=== PATIENT | male | born 1990 | race Caucasian/White ===

== ENCOUNTER → 2022-08-13 13:46 | Outpatient (CLI) | payer OTHER, SELFPAY ==
--- NOTE | ~2022-08-13 | XR_ITS ---
EXAM: XR sternum min 2V DATE: 08/13/2022 14:30 HISTORY: Other symptoms and signs involving the musculoskeletal syste . COMPARISON: None available. FINDINGS: Suboptimal sternal visualization in the frontal view. Normal mineralization. No fracture or dislocation. No lytic or blastic lesion. No erosion or periosteal change. Soft tissues within normal limits. IMPRESSION: Suboptimal sternal visualization of the frontal view, otherwise normal sternum radiograph findings. Reviewed, dictated and finalized at location [facility]. IMPRESSION: Suboptimal sternal visualization of the frontal view, otherwise nor mal sternum radiograph findings.
--- NOTE | ~2022-08-13 | XR_ITS ---
EXAMINATION: XR ribs LT 2V w CXR 2V Exam Date/Time: 08/13/2022 14:05 CDT HISTORY: Pleurodynia Comparison: None available. RESULT: Lines, tubes, and devices: None. Lungs and pleura: Clear. Cardiothymic silhouette: Normal. Other: No acute osseous or upper abdominal finding. IMPRESSION: No acute cardiopulmonary process. No acute osseous finding in the ribs. Reviewed, dictated and finalized at location [facility].
== END ==
PROVIDERS: PCP Physician Assistant; Visit Provider Physician Assistant
DX: R07.81 Pleurodynia (principal); R29.898 Other symptoms and signs involving the musculoskeletal system
CPT/HCPCS: 71046; 71100; 71120

== ENCOUNTER 2024-06-14 08:54 | Outpatient (CLI) | payer OTHER, SELFPAY ==
--- NOTE | ~2024-06-14 | XR_ITS ---
EXAMINATION: XR chest 2V 06/14/2024 09:12 INDICATION: Cough PROCEDURE: 2 view chest COMPARISON: 08/13/2022 FINDINGS: The lungs are clear. The cardiomediastinal silhouette is within normal limits. There are no pleural effusions. There is no pneumothorax suspected. IMPRESSION: 1: NO ACUTE CARDIOPULMONARY DISEASE. Reviewed, dictated and finalized at location A.
--- NOTE | ~2024-06-14 | XR_ITS ---
Lumbosacral Spine: AP and lateral views Clinical History: Pain Findings: The normal lordotic curve is maintained. The vertebral bodies and posterior elements are i ntact. The intervertebral disc spaces are preserved. The sacroiliac joints are normally outlined. Impression: No significant abnormality. Reviewed, dictated and finalized at [facility]. Impression: No significant abnormality.
== END 2024-06-14 08:55 | disposition home or self-care (01) ==
LOC: MICIMG 08:54
PROVIDERS: PCP Physician Assistant; Visit Provider Physician Assistant
DX: M54.16 Radiculopathy, lumbar region (principal); R05.8 Other specified cough
CPT/HCPCS: 71046; 72100